=== PATIENT | female | born 1965 | race Caucasian/White ===

== ENCOUNTER 2023-04-11 10:59 | Inpatient (IN) ==
[2023-04-11] MEDS ORDERED: PROPOFOL IV EMULSION 10 MG/ML 20 ML VIAL IV ONE ×3 (11:07→15:54)
[2023-04-11] MEDS ORDERED: KETAMINE HCL INJ 50 MG/ML 10 ML VIAL IV STA (11:14)
[2023-04-11] MEDS ORDERED: fentaNYL citrate PF 100 MCG/2 ML VIAL IV STA (11:14)
[2023-04-11] MEDS ORDERED: ONDANSETRON INJ 2 MG/ML 2 ML VIAL IV STA (11:14)
[2023-04-11] MEDS ORDERED: KETAMINE HCL INJ 50 MG/ML 10 ML VIAL ONE (11:18)
--- NOTE | 2023-04-11 11:35 | Pre Anesthesia Assessment ---
Date of Service April 11, 2023 Pre Sedation Assessment Vital Signs Temp Pulse Pulse Resp BP BP Pulse Ox 04/11/23 11:30 63 10 L 124/76 98 04/11/23 11:28 69 24 152/79 H 99 04/11/23 11:16 75 16 143/83 H 95 04/11/23 11:18 36.7 C 75 18 143/83 H 95 O2 Del Method 04/11/23 11:30 04/11/23 11:28 04/11/23 11:16 Room Air 04/11/23 11:18 Room Air Cardiovascular RRR, no murmur, no edema Respiratory normal respiratory effort, lungs clear to auscultation Pre-Sedation Airway Assessment Smoking Status: Unknown if ever smoked Short, Thick Neck: No Thyromental Distance: > or= 3.5 Finger Breadths Oral Cavity: + WNL Mallampati Class: I I ASA: ASA1 I NPO Status Date of Last Intake of Fluids: 04/10/23 Date of Last Intake of Solid Food: 04/10/23 Notes The planned sedation has been discussed with the patient. Informed Consent was obtained. I have identified the patient, determined the appropriateness of sedation and have assessed the patient immediately prior to the procedure. All medicine(s) and interventions are by my order. [facility] [place] Procedure Codes (Charges) Indication for Procedure Indication for procedure: Ankle fracture reduction
--- NOTE | 2023-04-11 11:36 | Emergency Department Note ---
ED Visit Note SEDATION NOTE: Last PO Intake per patient: 04/10/2023 at 1900 Consent was obtained and both verbal and written forms from the patient or guardian. Patient was placed on monitoring analyst with end-tidal capnography and continuous pulse ox. -Indication for sedation: Right ankle fracture reduction -Timeout was performed at: 1126 -Medications administered: Propofol 40 mg, ketamine 40 mg -Sedation start time: 1127 -Sedation end time: 1141 -Complications encountered: None On reexamination following and sedation time, patient is alert, following commands, airway is intact and patient is saturating well on room air. .
--- NOTE | 2023-04-11 12:08 | Post Anesthesia Assessment ---
Date of Service April 11, 2023 Post Sedation Assessment Vital Signs Temp Pulse Pulse Resp BP BP Pulse Ox 04/11/23 12:00 61 13 129/79 97 04/11/23 11:58 63 12 131/84 98 04/11/23 11:55 62 12 99 04/11/23 11:52 65 18 131/80 98 04/11/23 11:51 65 13 137/63 99 04/11/23 11:50 66 12 98 04/11/23 11:45 65 17 130/100 99 04/11/23 11:41 66 13 147/88 H 99 04/11/23 11:40 66 18 99 04/11/23 11:36 73 12 132/86 99 04/11/23 11:30 63 10 L 124/76 98 04/11/23 11:28 69 24 152/79 H 99 04/11/23 11:16 75 16 143/83 H 95 04/11/23 11:18 36.7 C 75 18 143/83 H 95 O2 Del Method O2 Flow Rate 04/11/23 12:00 Room Air 04/11/23 11:58 Room Air 04/11/23 11:55 Room Air 04/11/23 11:52 Room Air 04/11/23 11:51 Room Air 04/11/23 11:50 Room Air 04/11/23 11:45 Room Air 04/11/23 11:41 Room Air 04/11/23 11:40 Nasal Cannula 2 04/11/23 11:36 Nasal Cannula 2 04/11/23 11:30 04/11/23 11:28 04/11/23 11:16 Room Air 04/11/23 11:18 Room Air Recovery Score Activity: Moves 4 extremities Respiration: Deep Breath/Cough Consciousness: Fully Awake Oxygen Saturation: > 92% On Room Air Discharge Sedation Level of Care: Phase I Post Sedation Plan On clinical assessment, the patient appears to have tolerated the sedation without complications. Patient is recovering as anticipated. Patient will continue to be monitored by nursing and may be discharged when sedation discharge criteria are met per below protocol. Upon Completions of procedure up to 15 minutes continue every 5 minute vital signs and the P.A.R. score; then discharge to a Phase I or Fast Track to Phase II per the following guidelines: * Discharge Patient to appropriate Phase II area if PAR is 8 or greater or return to pre- procedure baseline. The post - procedure orders will be as directed. * If PAR score is less than 8 or not return to pre-procedure baseline then patient will follow Phase I monitoring till PAR is reached for Phase II. The Phase I may be done in procedure room or may call to secure a Phase I area. * If naloxone or flumazenil are used for reversal, hold in Phase I for continued monitoring from when last reversal dose was given for a minimum of 60 minutes or longer pending the nurse and/or physician discretion of patient condition before discharge to Phase II. Please call the Sedation Physician to re-evaluate and complete post-note for discharge to Phase II area. Do NOT discharge from procedure sedation or Phase 1 until post- sedation evaluation note is complete by procedure /sedation MD Sedation Discharge Instructions to be given to the patient at discharge to home. [facility] Procedure Codes (Charges) Indication for Procedure Indication for procedure: Right ankle fracture dislocation/reduction, patient tolerated sedation without issue.
--- NOTE | 2023-04-11 12:08 | XRay Report ---
RIGHT ANKLE 3 VIEWS CLINICAL HISTORY: Postreduction examination. FINDINGS: 3 views of the right ankle are compared to study performed earlier the same day 04/11/2023. The examination is performed through a splint, obscuring fine bony detail. The skeletal structures a re well-mineralized. Again seen is a displaced an angulated spiral fracture of the distal fibula and a mildly displaced avulsion fracture through the base of the medial malleolus. The medial malleolar f ragment is displaced inferiorly by at least 5 mm. Alignment of the ankle mortise is significantly imp roved. There is persistent widening of the medial joint space which measures approximately 7 mm, with lateral displacement of the talus. AP alignment of the tibiotalar joint is near-anatomic. There is a ssociated joint effusion and significant soft tissue edema around the knee. There is a small plantar heel spur. IMPRESSION: 1. Improved alignment of bimalleolar fractures as compared to previous as detailed above. 2. There is persistent widening of the medial joint space with mild lateral subluxation of the talus. Electronically signed by: Jayce Galvan M.D. 04/11/2023 12:06 PM
[2023-04-11] MEDS ORDERED: MoRPHine SULFATE 4 MG/ML 1 ML CARP\\VIAL IV PRN ×2 (12:33→20:19)
--- NOTE | 2023-04-11 13:33 | XRay Report ---
XR ankle RT 2V CLINICAL HISTORY: Right ankle pain. Fracture. COMPARISON STUDY: None. FINDINGS: There is a displaced oblique fracture within the distal fibula. This demonstrates up to 2.1 cm of posterior displacement. There is also displaced fracture at the medial malleolus. There is pos terior dislocation of the talus in relation to the distal tibia. There is diffuse soft tissue swellin g. IMPRESSION: Bimalleolar right ankle fracture/dislocation as described above. ACT 112: Negative or not required by law. Electronically signed by: Oleg Jose M.D. 04/11/2023 1:32 PM
--- NOTE | 2023-04-11 14:16 | History & Physical Report ---
Date of Service April 11, 2023 Assessment & Plan (1) Bimalleolar ankle fracture: Plan: Admit to [facility] Patient presenting from home after a mechanical fall down the stairs. In the ED, found to have right bimalleolar fracture. S/p reduction in the ED, will need OR. Ortho consulted Preop CBC and BMP unremarkable CXR without acute cardiopulmonary disease, EKG without acute ST changes. Patient denies cardiopulmonary complaints. Patient considered acceptable risk to proceed with surgery. Pain control with bowel regimen DVT prophylaxis per Ortho (2) Anxiety: (3) Depression: Plan: Chronic, stable Continue home meds DVT PROPHYLAXIS SCDs for now due to potential procedure Patient seen in collaboration with Dr. Jordan. I spent a total of 60 minutes coordinating, documenting, and providing care for this patient excluding time spent in the performance of separately billed services. This included personally reviewing all current laboratories and imaging studies, medication reconciliation, outpatient chart review, and discussion with specialists. History of Present Illness Chief Complaint: Fall, right ankle pain Primary Care Provider: ETHAN JONNYGeoff 57-year-old female with PMH anxiety, depression, and other problems listed below who presents to the ED for evaluation after a fall and subsequent right ankle pain. History obtained from the patient. Patient reports she was walking down steps in her socks when she slipped and fell down about 8 steps. Her right ankle was significantly swollen and deformed. Patient denies striking her head or loss of consciousness. No associated lightheadedness, dizziness, chest pain, shortness of breath. Patient reports she otherwise has been feeling well recently. No other recent illnesses, fevers, chills. She denies abdominal p ain, nausea, vomiting, diarrhea. No urinary symptoms. In the ED, patient is found to have a right bimalleolar fracture with dislocation. She underwent reduction in the ED. Allergies Allergy/AdvReac Type Severity Reaction Status Date / Time No Known Allergies Allergy Unverified 04/11/23 12:44 Home Medications Medication Instructions Recorded Confirmed Type estradiol 2 mg (7.5 mcg/24 hour) 1 vag ring vaginal MONTHLY 04/11/23 04/11/23 History vaginal ring (Estring) fluoxetine 10 mg capsule See Rx Instructions .Route .COMPLEX 04/11/23 04/11/23 History fluoxetine 40 mg capsule See Rx Instructions .Route .COMPLEX 04/11/23 04/11/23 History lamotrigine 200 mg tablet See Rx Instructions .Route .COMPLEX 04/11/23 04/11/23 History lamotrigine 25 mg tablet See Rx Instructions .Route .COMPLEX 04/11/23 04/11/23 History mirabegron 50 mg tablet,extended 50 mg PO QAM 04/11/23 04/11/23 History release 24 hr (Myrbetriq) multivitamin-ferrous 1 tab PO QAM 04/11/23 04/11/23 History fumarate-folic acid 18 mg-400 mcg tablet (Centrum Women) propranolol 20 mg tablet 20 mg PO QAM 04/11/23 04/11/23 History trazodone 50 mg tablet 50 mg PO HS 04/11/23 04/11/23 History Past Med/Surg History Medical History Anxiety Depression Surgical History History of appendectomy History of bilateral oophorectomy Family History Mother Esophageal cancer Father COPD (chronic obstructive pulmonary disease) Social History Smoking Status: Unknown if ever smoked Hx Substance Use: No Preferred Language: [place] Feels Safe at Home: Yes Physical Exam Constitutional: WD/WN, vitals as above no acute distress Eyes: PERRL, conjunctivae normal, anicteric sclerae ENMT: external ear and nose normal, oropharynx normal Respiratory: normal respiratory effort, lungs clear to auscultation Cardiovascular: Rate/Rhythm: regular rate and regular rhythm Vessels: normal peripheral pulses Extremities: no edema Gastrointestinal (Abdomen): normal bowel sounds, soft, nontender, no hepatosplenomegaly Musculoskeletal: RLE splinted, CSM checks intact Skin: no rashes, warm and dry Neurologic: PERRL, EOMI, accommodation nl, no face palsy, no dysarthria Psychiatric: A+Ox3, euthymic affect Results & Data Results & Data Vital Signs (Past 12 Hours) Vital Signs Temp Pulse Pulse Resp BP BP Pulse Ox 04/11/23 12:34 100 04/11/23 13:16 67 18 101/61 96 04/11/23 12:16 67 04/11/23 12:00 61 13 129/79 97 04/11/23 11:58 63 12 131/84 98 04/11/23 11:55 62 12 99 04/11/23 11:52 65 18 131/80 98 04/11/23 11:51 65 13 137/63 99 04/11/23 11:50 66 12 98 04/11/23 11:45 65 17 130/100 99 04/11/23 11:41 66 13 147/88 H 99 04/11/23 11:40 66 18 99 04/11/23 11:36 73 12 132/86 99 04/11/23 11:30 63 10 L 124/76 98 04/11/23 11:28 69 24 152/79 H 99 04/11/23 11:16 75 16 143/83 H 95 04/11/23 11:18 36.7 C 75 18 143/83 H 95 O2 Del Method O2 Flow Rate 04/11/23 12:34 Room Air 04/11/23 13:16 Room Air 04/11/23 12:16 04/11/23 12:00 Room Air 04/11/23 11:58 Room Air 04/11/23 11:55 Room Air 04/11/23 11:52 Room Air 04/11/23 11:51 Room Air 04/11/23 11:50 Room Air 04/11/23 11:45 Room Air 04/11/23 11:41 Room Air 04/11/23 11:40 Nasal Cannula 2 04/11/23 11:36 Nasal Cannula 2 04/11/23 11:30 04/11/23 11:28 04/11/23 11:16 Room Air 04/11/23 11:18 Room Air Code Status & VTE Plan VTE Prophylaxis Plan VTE Prophylaxis will be ordered: Yes Supervising Physician Co-Signing Physician Notes I have seen and discussed the case with the collaborating FLAT CUTTER. I agree with the above H&P. I have reviewed and confirmed the patients medical history, the findings on physical examination, and the patients diagnosis and treatment plan with Love FLAT CUTTER and agree with the information documented. In short, Ms. Buck is a 57 year old woman who presents after a sustaining a fall down 8 stairs with subsequent bimalleloar fracture of right ankle. Pending procedure with Ortho. Currently NPO. Post-operative pain management. Rest of plan as above
[2023-04-11 14:29] LABS: Basophils % (auto) 1.3 %; Eosinophils # (auto) 0.52 K/uL (0.00-0.50); Eosinophils % (auto) 6.6 %; Hemoglobin 11.6 g/dl (12.0-16.0); Immature Granulocytes # (auto) 0.02 K/uL (0.01-0.20); Immature Granulocytes % (auto) 0.3 %; Lymphocytes # (auto) 1.13 K/uL (1.20-3.40); Lymphocytes % (auto) 14.3 %; Mean Corpuscular Hemoglobin 30.3 pg (25.0-34.0); Mean Corpuscular Hgb Conc 32.2 g/dL (32.0-36.0); Mean Platelet Volume 11.8 fL (9.4-12.4); Monocytes # (auto) 0.45 K/uL (0.11-0.59); Monocytes % (auto) 5.7 %; Neutrophils % (auto) 71.8 %; Platelet Count 163 K/uL (130-400); RDW Coefficient of Variation 12.6 % (11.5-14.5); RDW Standard Deviation 43.7 fL (36.4-46.3); Red Blood Count 3.83 M/uL (4.20-5.40); White Blood Count 7.92 K/ul (4.8-10.8)
--- NOTE | 2023-04-11 14:37 | XRay Report ---
XR chest 1V portable HISTORY: 57 years-old Female pre op preoperative exam. No acute chest complaints COMPARISON: None TECHNIQUE: AP view of the chest FINDINGS: Cardiomediastinal and hilar silhouettes are within normal limits. No pneumothorax, pleural effusion o r airspace consolidation. Bones appear grossly intact. IMPRESSION: No acute process. ACT 112: Negative or not required by law. The above report was generated using voice recognition software. It may contain grammatical, syntax o r spelling errors. Electronically signed by: Sincere العراقي M.D. 04/11/2023 2:36 PM
[2023-04-11 14:44] LABS: Anion Gap 6 (3-11); BUN Creatinine Ratio 11.8 (10-20); Blood Urea Nitrogen 11 mg/dl (6-23); Calcium 8.5 mg/dl (8.6-10.3); Carbon Dioxide 28 mmol/L (21-32); Chloride 106 mmol/L (98-107); Est GFR (African American) 80.2 ml/min; Est GFR (Non-African American) 69.2 ml/min; Glucose 100 mg/dl (70-99(Fasting)); Potassium 3.7 mmol/L (3.5-5.1); Sodium 140 mmol/L (136-145)
[2023-04-11 15:01] LABS: Partial Thromboplastin Ratio 0.9; Partial Thromboplastin Time 26.2 Seconds (21.0-31.0)
[2023-04-11] MEDS ORDERED: ROCURONIUM BROMIDE 10 MG/ML 5 ML VIAL IV ONE (15:54)
[2023-04-11] MEDS ORDERED: ONDANSETRON INJ 2 MG/ML 2 ML VIAL ONE (15:54)
[2023-04-11] MEDS ORDERED: SUCCINYLCHOLINE CHLORIDE 20 MG/ML 10 ML VIAL IV ONE (15:54)
[2023-04-11] MEDS ORDERED: LIDOCAINE 2% 2 ML VIAL/AMP(20MG/ML) INFIL ONE (15:54)
[2023-04-11] MEDS ORDERED: DEXAMETHASONE SOD INJ 4 MG/ML VIAL ONE ×2 (15:54→17:29)
--- NOTE | 2023-04-11 16:02 | Emergency Department Note ---
History of Present Illness General Chief complaint: Ankle Pain Stated complaint: FALL, ANKLE PAIN Time Seen by Provider: 04/11/23 11:00 History of Present Illness Provider complaint: Right ankle pain Onset (ago): hour(s) 1 Location: lower extremity and right Radiation: non-radiation Severity: moderate Pain Consistency: + constant Maximum Pain Intensity: 7 Current Pain Intensity: 7 Quality: + aching and + dull Relieved By: + immobilization Exacerbated By: + movement Associated symptoms: no chest pain, no cough, no headaches, no nausea/vomiting or no shortness of breath 57-year-old female presents emergency department for right ankle pain. Patient states she was wearing her socks and fell down the stairs. She is not on any blood thinners. Patient denies any headache chest pain neck pain or difficulty breathing. No abdominal pain. Home Medications Medication Instructions Recorded Confirmed Type estradiol 2 mg (7.5 mcg/24 hour) 1 vag ring vaginal MONTHLY 04/11/23 04/11/23 History vaginal ring (Estring) fluoxetine 10 mg capsule See Rx Instructions .Route .COMPLEX 04/11/23 04/11/23 History fluoxetine 40 mg capsule See Rx Instructions .Route .COMPLEX 04/11/23 04/11/23 History lamotrigine 200 mg tablet See Rx Instructions .Route .COMPLEX 04/11/23 04/11/23 History lamotrigine 25 mg tablet See Rx Instructions .Route .COMPLEX 04/11/23 04/11/23 History mirabegron 50 mg tablet,extended 50 mg PO QAM 04/11/23 04/11/23 History release 24 hr (Myrbetriq) multivitamin-ferrous 1 tab PO QAM 04/11/23 04/11/23 History fumarate-folic acid 18 mg-400 mcg tablet (Centrum Women) propranolol 20 mg tablet 20 mg PO QAM 04/11/23 04/11/23 History trazodone 50 mg tablet 50 mg PO HS 04/11/23 04/11/23 History Allergies Allergy/AdvReac Type Severity Reaction Status Date / Time No Known Allergies Allergy Unverified 04/11/23 12:44 Past Med/Surg History Medical History Anxiety Depression Surgical History History of appendectomy History of bilateral oophorectomy Family History Mother Esophageal cancer Father COPD (chronic obstructive pulmonary disease) Social History Smoking Status: Unknown if ever smoked Hx Substance Use: No Preferred Language: Guyanese Feels Safe at Home: Yes Physical Exam Vital Signs Vital Signs - 24 hr 04/11/23 11:18 04/11/23 11:16 04/11/23 11:28 Temperature 36.7 C Temperature Source Oral Pulse Rate 75 69 Pulse Rate [Bilateral] 75 Pulse Rate from SpO2 Sensor 68 Pulse Rhythm [Bilateral] Pulse Strength [Bilateral] Respiratory Rate 18 16 24 Respiratory Effort / Characteristics Respiratory Depth Respiratory Pattern Blood Pressure 143/83 H 152/79 H Blood Pressure [Right Arm] 143/83 H Blood Pressure Mean 103 103 Blood Pressure Mean [Right Arm] 103 Blood Pressure Position [Right Arm] Pulse Oximetry 95 95 99 Oxygen Delivery Method Room Air Room Air Oxygen Flow Rate Sepsis Recent Fever Within 48 Hours No Sepsis New/Unexplained Change in Mental Status N/A Sepsis Action Taken by Nursing No Action Required End-Tidal CO2 17 04/11/23 11:30 04/11/23 11:36 04/11/23 11:40 Temperature Temperature Source Pulse Rate 63 73 66 Pulse Rate [Bilateral] Pulse Rate from SpO2 Sensor 63 72 65 Pulse Rhythm [Bilateral] Pulse Strength [Bilateral] Respiratory Rate 10 L 12 18 Respiratory Effort / Characteristics Respiratory Depth Respiratory Pattern Blood Pressure 124/76 132/86 Blood Pressure [Right Arm] Blood Pressure Mean 92 101 Blood Pressure Mean [Right Arm] Blood Pressure Position [Right Arm] Pulse Oximetry 98 99 99 Oxygen Delivery Method Nasal Cannula Nasal Cannula Oxygen Flow Rate 2 2 Sepsis Recent Fever Within 48 Hours Sepsis New/Unexplained Change in Mental Status Sepsis Action Taken by Nursing End-Tidal CO2 15 15 21 04/11/23 11:41 04/11/23 11:45 04/11/23 11:50 Temperature Temperature Source Pulse Rate 66 65 66 Pulse Rate [Bilateral] Pulse Rate from SpO2 Sensor 66 65 66 Pulse Rhythm [Bilateral] Pulse Strength [Bilateral] Respiratory Rate 13 17 12 Respiratory Effort / Characteristics Respiratory Depth Respiratory Pattern Blood Pressure 147/88 H 130/100 Blood Pressure [Right Arm] Blood Pressure Mean 107 110 Blood Pressure Mean [Right Arm] Blood Pressure Position [Right Arm] Pulse Oximetry 99 99 98 Oxygen Delivery Method Room Air Room Air Room Air Oxygen Flow Rate Sepsis Recent Fever Within 48 Hours Sepsis New/Unexplained Change in Mental Status Sepsis Action Taken by Nursing End-Tidal CO2 18 20 21 04/11/23 11:51 04/11/23 11:52 04/11/23 11:55 Temperature Temperature Source Pulse Rate 65 65 62 Pulse Rate [Bilateral] Pulse Rate from SpO2 Sensor 65 65 62 Pulse Rhythm [Bilateral] Pulse Strength [Bilateral] Respiratory Rate 13 18 12 Respiratory Effort / Characteristics Respiratory Depth Respiratory Pattern Blood Pressure 137/63 131/80 Blood Pressure [Right Arm] Blood Pressure Mean 87 97 Blood Pressure Mean [Right Arm] Blood Pressure Position [Right Arm] Pulse Oximetry 99 98 99 Oxygen Delivery Method Room Air Room Air Room Air Oxygen Flow Rate Sepsis Recent Fever Within 48 Hours Sepsis New/Unexplained Change in Mental Status Sepsis Action Taken by Nursing End-Tidal CO2 22 20 04/11/23 11:58 04/11/23 12:00 04/11/23 12:16 Temperature Temperature Source Pulse Rate 63 61 67 Pulse Rate [Bilateral] Pulse Rate from SpO2 Sensor 62 62 Pulse Rhythm [Bilateral] Pulse Strength [Bilateral] Respiratory Rate 12 13 Respiratory Effort / Characteristics Respiratory Depth Respiratory Pattern Blood Pressure 131/84 129/79 Blood Pressure [Right Arm] Blood Pressure Mean 99 95 Blood Pressure Mean [Right Arm] Blood Pressure Position [Right Arm] Pulse Oximetry 98 97 Oxygen Delivery Method Room Air Room Air Oxygen Flow Rate Sepsis Recent Fever Within 48 Hours Sepsis New/Unexplained Change in Mental Status Sepsis Action Taken by Nursing End-Tidal CO2 23 25 04/11/23 13:16 04/11/23 12:34 04/11/23 14:00 Temperature Temperature Source Pulse Rate Pulse Rate [Bilateral] 67 63 Pulse Rate from SpO2 Sensor Pulse Rhythm [Bilateral] Pulse Strength [Bilateral] Respiratory Rate 18 18 Respiratory Effort / Characteristics Respiratory Depth Respiratory Pattern Blood Pressure Blood Pressure [Right Arm] 101/61 91/56 L Blood Pressure Mean Blood Pressure Mean [Right Arm] 74 67 Blood Pressure Position [Right Arm] Pulse Oximetry 96 100 95 Oxygen Delivery Method Room Air Room Air Room Air Oxygen Flow Rate Sepsis Recent Fever Within 48 Hours Sepsis New/Unexplained Change in Mental Status Sepsis Action Taken by Nursing End-Tidal CO2 04/11/23 16:12 04/11/23 15:50 04/11/23 16:09 Temperature 36.6 C Temperature Source Oral Pulse Rate Pulse Rate [Bilateral] 58 L 68 Pulse Rate from SpO2 Sensor Pulse Rhythm [Bilateral] Regular Pulse Strength [Bilateral] Normal Respiratory Rate 20 18 Respiratory Effort / Characteristics Non-Labored Spontaneous Respiratory Depth Normal Respiratory Pattern Regular Blood Pressure Blood Pressure [Right Arm] 115/64 102/61 Blood Pressure Mean Blood Pressure Mean [Right Arm] 81 74 Blood Pressure Position [Right Arm] Semi-fowlers Pulse Oximetry 100 98 Oxygen Delivery Method Room Air Room Air Room Air Oxygen Flow Rate Sepsis Recent Fever Within 48 Hours Sepsis New/Unexplained Change in Mental Status Sepsis Action Taken by Nursing End-Tidal CO2 Physical Exam HENT: Exam performed. -Head: Normocephalic and atraumatic. -Right Ear: External ear normal. No mastoid erythema -Left Ear: External ear normal. No mastoid erythema -Mouth/Throat: The oropharynx is clear and moist. No trismus in the jaw. No dental abscesses or uvula swelling. No oropharyngeal exudate or tonsillar abscesses. EYES: Conjunctivae and EOM are normal. Pupils are equal, round, and reactive to light. Right eye exhibits no discharge. Left eye exhibits no discharge. No scleral icterus. NECK: Normal range of motion. Neck supple. No JVD present. No spinous process tenderness present. CV: Normal rate, regular rhythm, normal heart sounds and intact distal pulses. There is no peripheral edema. Palpable radial pulses bue. PULM/CHEST: Effort normal and breath sounds normal. No respiratory distress. No stridor. She has no wheezes. She has no rales. -Chest Wall: She exhibits no tenderness. No crepitus bilaterally ABD: The abdomen is soft. There is no tenderness. There is no rebound, no guarding MUSC/SKEL: Pelvis stable. Right lower extremity: Obvious deformity with skin tenting of the right ankle. Palpable DP pulse. Left lower extremity: Within normal limits. NEURO: Motor and sensation grossly intact. Procedures Orthopedic Joint Reduction Right ankle: Time Out Performed: Yes Side: right Joint Reduction Location: ankle Analgesia: procedural sedation Technique used: traction/counter-traction Post-reduction neuro exam: intact Post-reduction vascular: intact Post Reduction X-Ray Obtained: Yes Post Reduction X-Ray Results: reduced Splint Applied: Yes Patient Tolerated Procedure: well Additional Comments: Splint was checked after was applied by the splinting tech and the patient had good capillary refill less than 2 seconds and sensation was intact. Course Course 1100: The patient was evaluated in room B10. A complete history and physical exam was performed Cardiac monitoring: An order was placed for continuous cardiac monitoring. The monitor shows a rate of 60 with sinus rhythm interpreted by tx 1235: Vital signs stable. Joint was reduced while under sedation performed by Dr. Powers. See procedure notes. After discussion with the family and they are physician friend in the area locally Dr. Anne decision was made that the patient would be admitted here for orthopedic surgery to have the fractures fixed as they thought it would be very difficult to travel back to [place] with the patient in as much pain as she is in. We will contact Dr. Mina on-call orthopedics. 1250: Spoke with Dr. Mina who asked that the patient be admitted to the medicine team. Administered Medications Morphine Sulfate (Morphine Sulfate 4 Mg/Ml 1 Ml Carp\Vial) 4 mg IV Q2H PRN PRN Reason: Pain Stop: 04/25/23 12:44 Last Admin: 04/11/23 14:01 Dose: 4 mg Documented By: TBS Discontinued Medications Fentanyl Citrate (Fentanyl Citrate Pf 100 Mcg/2 Ml Vial) 100 mcg IV NOW STA Stop: 04/11/23 11:15 Last Admin: 04/11/23 11:24 Dose: 100 mcg Documented By: ANA LUISA Cefazolin Sodium (Ancef 2000mg) 2,000 mg in 15 mls @ 3.75 mls/min IV PREOP ONE; Protocol Stop: 04/11/23 16:17 Last Admin: 04/11/23 16:48 Dose: 3.75 mls/min Documented By: LORNA Ketamine HCl (Ketamine Hcl Inj 50 Mg/Ml 10 Ml Vial) Confirm Administered Dose 500 mg .ROUTE .STK-MED ONE Stop: 04/11/23 11:19 Last Admin: 04/11/23 11:45 Dose: Not Given Documented By: ANA LUISA Ketamine HCl (Ketamine Hcl Inj 50 Mg/Ml 10 Ml Vial) 40 mg IV NOW STA Stop: 04/11/23 11:15 Last Admin: 04/11/23 11:27 Dose: 40 mg Documented By: [id number] Ondansetron HCl (Ondansetron Inj 2 Mg/Ml 2 Ml Vial) 4 mg IV NOW STA Stop: 04/11/23 11:15 Last Admin: 04/11/23 11:24 Dose: 4 mg Documented By: ANA LUISA Propofol (Propofol Iv Emulsion 10 Mg/Ml 20 Ml Vial) Confirm Administered Dose 200 mg IV .STK-MED ONE Stop: 04/11/23 11:08 Last Admin: 04/11/23 11:45 Dose: Not Given Documented By: ANA LUISA Propofol (Propofol Iv Emulsion 10 Mg/Ml 20 Ml Vial) Confirm Administered Dose 200 mg IV .STK-MED ONE Stop: 04/11/23 11:08 Last Admin: 04/11/23 11:28 Dose: 40 mg Documented By: [id number] Co-signed By: UBALDO Medical Decision Making Laboratory Data Attestation: I reviewed the patient's lab results. 04/11/23 14:00 04/11/23 14:00 Lab Results 04/11/23 04/11/23 04/11/23 Range/Units 14:00 14:00 14:00 WBC 7.92 (4.8-10.8) K/ul RBC 3.83 L (4.20-5.40) M/uL Hgb 11.6 L (12.0-16.0) g/dl Hct 36.0 L (37.0-47.0) % MCV 94.0 (80.0-100.0) fL MCH 30.3 (25.0-34.0) pg MCHC 32.2 (32.0-36.0) g/dL RDW Std Deviation 43.7 (36.4-46.3) fL RDW Coeff of Tolu 12.6 (11.5-14.5) % Plt Count 163 (130-400) K/uL MPV 11.8 (9.4-12.4) fL Immature Gran % (Auto) 0.3 % Neut % (Auto) 71.8 % Lymph % (Auto) 14.3 % [place] % (Auto) 5.7 % Eos % (Auto) 6.6 % Baso % (Auto) 1.3 % Neut # (Auto) 5.70 (1.40-6.50) K/uL Lymph # (Auto) 1.13 L (1.20-3.40) K/uL [place] # (Auto) 0.45 (0.11-0.59) K/uL Eos # (Auto) 0.52 H (0.00-0.50) K/uL Baso # (Auto) 0.10 (0.00-0.20) K/uL Immature Gran # (Auto) 0.02 (0.01-0.20) K/uL PT 11.0 (9.0-12.0) Seconds INR 1.0 (0.9-1.1) APTT 26.2 (21.0-31.0) Seconds PTT Ratio 0.9 Sodium 140 (136-145) mmol/L Potassium 3.7 (3.5-5.1) mmol/L Chloride 106 (98-107) mmol/L Carbon Dioxide 28 (21-32) mmol/L Anion Gap 6 (3-11) BUN 11 (6-23) mg/dl Creatinine 0.93 (0.6-1.2) mg/dl Est Cr Clr Drug Dosing Not Reportable Est GFR ( Amer) 80.2 ml/min Est GFR (Non-Af Amer) 69.2 ml/min BUN/Creatinine Ratio 11.8 (10-20) Glucose 100 H (70-99(Fasting)) mg/dl Calcium 8.5 L (8.6-10.3) mg/dl Imaging Data Attestation: I personally reviewed and interpreted this imaging study as follows: My Impression: Right ankle x-ray #1: Fracture dislocation of the right ankle Right ankle x-ray #2: Successful closed reduction of the right ankle Radiologist's Impression: Ankle X-Ray 04/11/23 11:13 XR ankle RT 2V CLINICAL HISTORY: Right ankle pain. Fracture. COMPARISON STUDY: None. FINDINGS: There is a displaced oblique fracture within the distal fibula. This demonstrates up to 2.1 cm of posterior displacement. There is also displaced fracture at the medial malleolus. There is posterior dislocation of the talus in relation to the distal tibia. There is diffuse soft tissue swelling. IMPRESSION: Bimalleolar right ankle fracture/dislocation as described above. ACT 112: Negative or not required by law. Electronically signed by: Oleg Jose M.D. 04/11/2023 1:32 PM Ankle X-Ray 04/11/23 11:34 RIGHT ANKLE 3 VIEWS CLINICAL HISTORY: Postreduction examination. FINDINGS: 3 views of the right ankle are compared to study performed earlier the same day 04/11/2023. The examination is performed through a splint, obscuring fine bony detail. The skeletal structures are well-mineralized. Again seen is a displaced an angulated spiral fracture of the distal fibula and a mildly displaced avulsion fracture through the base of the medial malleolus. The medial malleolar fragment is displaced inferiorly by at least 5 mm. Alignment of the ankle mortise is significantly improved. There is persistent widening of the medial joint space which measures approximately 7 mm, with lateral displacement of the talus. AP alignment of the tibiotalar joint is near-anatomic. There is associated joint effusion and significant soft tissue edema around the knee. There is a small plantar heel spur. IMPRESSION: 1. Improved alignment of bimalleolar fractures as compared to previous as detailed above. 2. There is persistent widening of the medial joint space with mild lateral subluxation of the talus. Electronically signed by: Jayce Galvan M.D. 04/11/2023 12:06 PM Chest X-Ray 04/11/23 13:46 XR chest 1V portable HISTORY: 57 years-old Female pre op preoperative exam. No acute chest complaints COMPARISON: None TECHNIQUE: AP view of the chest FINDINGS: Cardiomediastinal and hilar silhouettes are within normal limits. No pneumothorax, pleural effusion or airspace consolidation. Bones appear grossly intact. IMPRESSION: No acute process. ACT 112: Negative or not required by law. The above report was generated using voice recognition software. It may contain grammatical, syntax or spelling errors. Electronically signed by: Sincere العراقي M.D. 04/11/2023 2:36 PM ECG Data Attestation: I personally reviewed and interpreted this ECG as follows: Rate (beats per minute): 60 Rhythm: + normal sinus ECG Intervals/blocks: + Normal MT and + Normal QT-c ECG ST segments: + Normal ST segments Additional Comments: QRS 76 MDM Narrative 1100: The patient was evaluated in room B10. A complete history and physical exam was performed Cardiac monitoring: An order was placed for continuous cardiac monitoring. The monitor shows a rate of 60 with sinus rhythm interpreted by me 1235: Vital signs stable. Joint was reduced while under sedation performed by Dr. Powers. See procedure notes. After discussion with the family and they are physician friend in the area locally Dr. Anne decision was made that the patient would be admitted here for orthopedic surgery to have the fractures fixed as they thought it would be very difficult to travel back to [place] with the patient in as much pain as she is in. We will contact Dr. Mina on-call orthopedics. 1250: Spoke with Dr. Mina who asked that the patient be admitted to the medicine team. Impression & Plan Fracture of ankle, trimalleolar, right, closed Discharge Plan Visit Data Chief Complaint: Ankle Pain Stated Complaint: FALL, ANKLE PAIN ED Provider: Steven Núñez Discharge Problem: Fracture of ankle, trimalleolar, right, closed Patient Disposition: Admitted As Inpatient Discharge Instructions Interventions: ED Discharge Assessment Last Done: 04/11/23 16:09 Forms Stand Alone Forms: [facility] [place] Prescriptions Prescriptions: No Action fluoxetine 40 mg capsule See Rx Instructions .ROUTE .COMPLEX Rx Instructions: Take 2 of the 40mg capsules w/ one of the 10mg capsules to equal 90mg by mouth every morning. trazodone 50 mg tablet 50 mg PO HS fluoxetine 10 mg capsule See Rx Instructions .ROUTE .COMPLEX Rx Instructions: Take 10mg capsule w/ 2 of the 40mg capsules to equal 90mg by mouth every morning. Estring 2 mg (7.5 mcg /24 hour) ring 1 vag ring VAGINAL MONTHLY propranolol 20 mg tablet 20 mg PO QAM Centrum Women 18-400 mg-mcg Tablet 1 tab PO QAM Myrbetriq 50 mg tablet extended release 24 hr 50 mg PO QAM lamotrigine 200 mg tablet See Rx Instructions .ROUTE .COMPLEX Rx Instructions: Take 200mg tablet w/ 25mg tablet by mouth to equal 225mg twice daily lamotrigine 25 mg tablet See Rx Instructions .ROUTE .COMPLEX Rx Instructions: Take 25mg tablet w/ 200mg tablet by mouth to equal 225mg twice daily Referrals Referrals: Shelia Singh MD [Primary Care Provider] -
[2023-04-11] MEDS ORDERED: BUPIVACAINE/EPINEPHRINE 0.5% MPF 1:200,000 30 ML VIAL ONE (16:03)
[2023-04-11] MEDS ORDERED: ePHEDrine sulfate 50 MG/ML AMP IV PRN (16:12)
[2023-04-11] MEDS ORDERED: ATROPINE SULFATE 0.1 MG/ML 10ML SYR IV PRN (16:12)
[2023-04-11] MEDS ORDERED: ONDANSETRON INJ 2 MG/ML 2 ML VIAL IV PRN ×2 (16:12→20:19)
[2023-04-11] MEDS ORDERED: fentaNYL citrate PF 100 MCG/2 ML VIAL IV PRN (16:12)
[2023-04-11] MEDS ORDERED: ceFAZolin 2000MG 2,000 MG/15 ML SYR IV ONE (16:14)
[2023-04-11] MEDS ORDERED: ceFAZolin 2,000 MG/15 ML IV PUSH IV ONE (16:16)
--- NOTE | 2023-04-11 16:21 | History & Physical Bridge Note ---
Date of Service April 11, 2023 History & Physical Bridge Note I have examined the patient, reviewed the History & Physical and in the interval since the performance of the History & Physical I have noted the following changes of clinical significance: no changes noted
[2023-04-11] MEDS ORDERED: fentaNYL citrate PF 100 MCG/2 ML VIAL ONE (16:22)
[2023-04-11] MEDS ORDERED: MIDAZOLAM HCL 1 MG/ML 2ML VIAL ONE (16:22)
--- NOTE | 2023-04-11 16:28 | Anesthesiology Consultation ---
Date of Service April 11, 2023 Assessment & Plan Chart Review Chart Review: Acceptable Risk for Surgery and Patient NOT seen in Pre Admission Testing Consults Requested none ASA ASA2 Proposed Anesthesia Regional Laterality: Right Site: Popliteal and Adductor Canal Risk / Benefits Reviewed With: PT / POA / Parent / Guardian, Accepts Plan and Informed Consent Obtained History Surgery Operation Date: 04/11/23 15:45 Proposed Procedures p Open Reduction Internal Fixation Right Ankle Trimalleolar Fracture - Narendra Mina DO Height/Weight Weight: 73.9 kg Allergies Allergy/AdvReac Type Severity Reaction Status Date / Time No Known Allergies Allergy Unverified 04/11/23 12:44 Medications Home Medications Medication Instructions Recorded Confirmed Last Taken estradiol 2 mg (7.5 mcg/24 hour) 1 vag ring vaginal MONTHLY 04/11/23 04/11/23 04/01/23 vaginal ring (Estring) fluoxetine 10 mg capsule See Rx Instructions .Route .COMPLEX 04/11/23 04/11/23 04/10/23 fluoxetine 40 mg capsule See Rx Instructions .Route .COMPLEX 04/11/23 04/11/23 04/10/23 lamotrigine 200 mg tablet See Rx Instructions .Route .COMPLEX 04/11/23 04/11/23 04/10/23 lamotrigine 25 mg tablet See Rx Instructions .Route .COMPLEX 04/11/23 04/11/23 04/10/23 mirabegron 50 mg tablet,extended 50 mg PO QAM 04/11/23 04/11/23 04/10/23 release 24 hr (Myrbetriq) multivitamin-ferrous 1 tab PO QAM 04/11/23 04/11/23 04/10/23 fumarate-folic acid 18 mg-400 mcg tablet (Centrum Women) propranolol 20 mg tablet 20 mg PO QAM 04/11/23 04/11/23 04/10/23 trazodone 50 mg tablet 50 mg PO HS 04/11/23 04/11/23 04/10/23 Active Medications Generic Name Dose Route Start Last Admin Trade Name Freq PRN Reason Stop Dose Admin Morphine Sulfate 4 mg 04/11/23 12:33 04/11/23 14:01 Morphine Sulfate 4 Mg/Ml 1 Ml Carp\Vial IV 04/25/23 12:44 4 mg Q2H PRN Administration Pain NPO Date Last Intake of Fluids: 04/10/23 Time Last Intake of Fluids: 21:00 Date Last Intake of Solids: 04/10/23 Time Last Intake of Solids: 21:00 Past Medical History Medical History Anxiety Depression Past Family History Family History (Updated 04/11/23 @ 14:11 by ADE Musa) Mother Esophageal cancer Father COPD (chronic obstructive pulmonary disease) Past Surgical History Surgical History History of appendectomy History of bilateral oophorectomy Past Anesthesia History No Hx of Anesthesia Complications and No Family Hx of Anesthesia Complications Social History Smoking Status: Unknown if ever smoked Hx Substance Use: No substance use type: does not use Review of Systems ROS Unobtainable: All systems reviewed & are unremarkable except as noted in HPI & below Physical Exam Vital Signs Last Vital Signs Temp 36.6 C 04/11/23 16:12 Pulse 58 L 04/11/23 16:12 Resp 20 04/11/23 16:12 BP 115/64 04/11/23 16:12 Pulse Ox 100 04/11/23 16:12 O2 Del Method Room Air 04/11/23 16:12 O2 Flow Rate 2 04/11/23 11:40 Constitutional no acute distress ENMT Mouth: no TMJ abnormality Thyromental Distance: > or= 3.5 Finger Breadths Mallampati Class: II Neck normal visual inspection and trachea midline; neck extension not limited Respiratory normal respiratory effort Auscultation: lungs clear to auscultation bilaterally Cardiovascular Rate/Rhythm: regular rate and regular rhythm Heart Sounds: no murmur Musculoskeletal Spine: normal cervical ROM Extremities: full ROM of extremities Neurologic moves all extremities Psychiatric Orientation: alert and oriented x 3 Testing Laboratory Results 04/11/23 14:00 04/11/23 14:00 PT 11.0 Seconds (9.0-12.0) 04/11/23 14:00 INR 1.0 (0.9-1.1) 04/11/23 14:00 APTT 26.2 Seconds (21.0-31.0) 04/11/23 14:00 Electrocardiogram Date: 04/11/23 Findings: + NSR @ Left posterior fasicular block
[2023-04-11] MEDS ORDERED: ROPIVACAINE 0.5% 5 MG/ML 30 ML VIAL ONE (16:29)
--- NOTE | 2023-04-11 17:02 | Orthopedic Consultation ---
Date of Consultation April 11, 2023 Assessment & Plan (1) Fracture of ankle, trimalleolar, right, closed: Patient will undergo operative fixation right ankle. Scheduled for ORIF closed trimalleolar ankle fracture dislocation. Patient will be placed in a splint postop. Nonweightbearing right lower extremity. Initiate DVT prophylaxis tomorrow for a period of 4 weeks with aspirin 81 mg twice daily x4 weeks. Ice and elevate. May follow-up with orthopedic surgeon in [place] when returns home. Follow-up with Dr. Mina at [facility] orthopedic [place] should they decide to stay in the [facility]. Thank you for the opportunity to consult in the care of this patient. Narendra Mina DO [facility] (2) Dislocation of right ankle joint: History of Present Illness Reason for Consultation: Right trimalleolar ankle fracture dislocation. Requesting Physician: Dr. Santos Núñez. Hospitalist service. History of Present Illness This 57-year-old pleasant female was in her usual state of health when she slipped down a flight of stairs resulting in pain and deformity of her right ankle. She was unable to ambulate. She was transported to [facility] via EMS. She was seen by the emergency department physician where she was evaluated, x-rayed and noted to have a fracture dislocation of her right ankle. Patient underwent closed reduction by the ER physician and placement in a splint. Patient was then admitted to the hospitalist service for further orthopedic consultation and definitive surgical management today. Patient denies any loss of consciousness, head or neck trauma. She and her were visiting from [place]. Allergies Allergy/AdvReac Type Severity Reaction Status Date / Time No Known Allergies Allergy Unverified 04/11/23 12:44 Home Medications Medication Instructions Recorded Confirmed Type estradiol 2 mg (7.5 mcg/24 hour) 1 vag ring vaginal MONTHLY 04/11/23 04/11/23 History vaginal ring (Estring) fluoxetine 10 mg capsule See Rx Instructions .Route .COMPLEX 04/11/23 04/11/23 History fluoxetine 40 mg capsule See Rx Instructions .Route .COMPLEX 04/11/23 04/11/23 History lamotrigine 200 mg tablet See Rx Instructions .Route .COMPLEX 04/11/23 04/11/23 History lamotrigine 25 mg tablet See Rx Instructions .Route .COMPLEX 04/11/23 04/11/23 History mirabegron 50 mg tablet,extended 50 mg PO QAM 04/11/23 04/11/23 History release 24 hr (Myrbetriq) multivitamin-ferrous 1 tab PO QAM 04/11/23 04/11/23 History fumarate-folic acid 18 mg-400 mcg tablet (Centrum Women) propranolol 20 mg tablet 20 mg PO QAM 04/11/23 04/11/23 History trazodone 50 mg tablet 50 mg PO HS 04/11/23 04/11/23 History Patient History Medical History Anxiety Depression Surgical History History of appendectomy History of bilateral oophorectomy Family History (Updated 04/11/23 @ 14:11 by ADE Musa) Mother Esophageal cancer Father COPD (chronic obstructive pulmonary disease) Social History Smoking Status: Unknown if ever smoked Hx Substance Use: No Preferred Language: Malay Feels Safe at Home: Yes Physical Exam Constitutional: WD/WN, vitals as above Eyes: PERRL, conjunctivae normal, anicteric sclerae Glasses present. ENMT: external ear and nose normal, oropharynx normal Neck: trachea midline, no thyromegaly Respiratory: normal respiratory effort, lungs clear to auscultation Cardiovascular: RRR, no murmur, no edema Gastrointestinal (Abdomen): normal bowel sounds, soft, nontender, no hepatosplenomegaly Musculoskeletal: Right lower extremity posterior splint with stirrup in reasonable position postreduction. Toes are exposed, pink and warm. Capillary refill is brisk. Dorsalis pedis pulses palpable 2/4. Sensation intact right foot. Tenderness over the ankle with limited motion in the splint. Skin: no rashes, warm and dry Neurologic: PERRL, EOMI, accommodation nl, no face palsy, no dysarthria Psychiatric: A+Ox3, euthymic affect Lymphatic: no cervical or axillary lymphadenopathy Results & Data Vital Signs (Past 12 Hours) Vital Signs Temp Pulse Pulse Resp BP BP Pulse Ox 04/11/23 16:09 04/11/23 15:50 68 18 102/61 98 04/11/23 16:12 36.6 C 58 L 20 115/64 100 04/11/23 14:00 63 18 91/56 L 95 04/11/23 12:34 100 04/11/23 13:16 67 18 101/61 96 04/11/23 12:16 67 04/11/23 12:00 61 13 129/79 97 04/11/23 11:58 63 12 131/84 98 04/11/23 11:55 62 12 99 04/11/23 11:52 65 18 131/80 98 04/11/23 11:51 65 13 137/63 99 04/11/23 11:50 66 12 98 04/11/23 11:45 65 17 130/100 99 04/11/23 11:41 66 13 147/88 H 99 04/11/23 11:40 66 18 99 04/11/23 11:36 73 12 132/86 99 04/11/23 11:30 63 10 L 124/76 98 04/11/23 11:28 69 24 152/79 H 99 04/11/23 11:16 75 16 143/83 H 95 04/11/23 11:18 36.7 C 75 18 143/83 H 95 O2 Del Method O2 Flow Rate 04/11/23 16:09 Room Air 04/11/23 15:50 Room Air 04/11/23 16:12 Room Air 04/11/23 14:00 Room Air 04/11/23 12:34 Room Air 04/11/23 13:16 Room Air 04/11/23 12:16 04/11/23 12:00 Room Air 04/11/23 11:58 Room Air 04/11/23 11:55 Room Air 04/11/23 11:52 Room Air 04/11/23 11:51 Room Air 04/11/23 11:50 Room Air 04/11/23 11:45 Room Air 04/11/23 11:41 Room Air 04/11/23 11:40 Nasal Cannula 2 04/11/23 11:36 Nasal Cannula 2 04/11/23 11:30 04/11/23 11:28 04/11/23 11:16 Room Air 04/11/23 11:18 Room Air Diagnostic Findings Injury radiographs demonstrate fracture dislocation of the right ankle, close. Postreduction radiographs right ankle trimalleolar fracture 3 views demonstrate improved alignment postreduction in splint.
[2023-04-11] MEDS ORDERED: ePHEDrine sulfate 50 MG/5 ML SYR ONE (17:28)
[2023-04-11] MEDS ORDERED: BUPIVACAINE/EPINEPHRINE 0.25% 1:200,000 30 ML VIAL ONE (18:18)
--- NOTE | 2023-04-11 18:38 | Fluoroscopy Report ---
INTRAOPERATIVE RADIOGRAPHS CLINICAL HISTORY: Open reduction and internal fixation of right ankle fractures. Fluoro time: 19 seconds Ka,r: 0.40 mGy FINDINGS: 2 spot fluoroscopic views of the right ankle are correlated with ankle radiographs performe d earlier the same day 04/11/2023. 2 cortical lag screws have been placed transfixing a medial malleo lar fracture. There as been ultrasound plate fixation of a distal fibular fracture. Numerous cortical lag screw transfix the buttress plate. An additional cortical lag screw transfixes the distal tibia and fibula. Near-anatomic alignment is restored. Overlying soft tissue edema is noted. IMPRESSION: Intraoperative images from open reduction and internal fixation of distal tibial and fibu lar fractures as above. Electronically signed by: Jayce Galvan M.D. 04/11/2023 6:37 PM
--- NOTE | 2023-04-11 20:08 | Operative Report ---
Post Operative Report Pre & Post Diagnosis Operation Date: 04/11/23 15:45 Preoperative diagnosis: Right ankle closed displaced trimalleolar fracture dislocation, Right ankle syndesmotic disruption Post operative diagnosis: Right ankle closed displaced trimalleolar fracture dislocation, Right ankle syndesmotic disruption, Superior medial osteochondral defect of the talus 6 mm x 7 mm I identified the patient and participated in the time-out.: Yes Procedure Operation Date: 04/11/23 15:45 Procedure: Open reduction internal fixation right ankle trimalleolar fracture dislocation, Open reduction internal fixation syndesmotic disruption, Arthrotomy medial ankle joint, Chondroplasty superior medial talus, Osteochondral drilling superior medial talus. Surgeon Narendra Mina, Simulation Technician None Estimated Blood Loss 10 Findings Consistent with Post-Op Diagnosis Specimens None Anesthesia Type General Regional Complications none Disposition Accompanied Patient To Recovery: No Indications This is a pleasant 57-year-old female who fell down a flight of steps earlier this morning. She had immediate deformity, pain and inability to ambulate on her deformed right ankle. She was transported to [facility] where she was stabilized, evaluated with x-rays noting a closed trimalleolar right ankle fracture dislocation. Patient then underwent closed reduction and splinting. Patient was then admitted to the hospitalist service with orthopedic consultation performed. Patient was then scheduled for surgical fixation of her displaced closed trimalleolar fracture dislocation of her right ankle as indicated. Description of Procedure All potential risks, benefits, complications, alternatives, rehab, need for further surgery, potential for incomplete relief of symptoms, neurovascular injury, DVT, PE, , stiffness, weakness, loss of function, persistent pain, swelling, numbness, bone fracture, complications from hardware and wound complications were discussed with the patient and family. The patient and family decided to proceed with the procedure as indicated. The patient was given a popliteal block in the preop holding area and then taken to the operative suite and placed supine on the operating table. I did review the consent and identification of the proper operative site was performed. The patient was anesthetized and LMA was placed. A tourniquet was applied high on the operative right thigh over cast padding. The operative right lower extremity was then sterilely prepped and draped in usual fashion, elevated and exsanguinated with an Esmarch bandage. The tourniquet was inflated to 325 mmHg. A 15 blade scalpel was used to make an incision over the lateral malleolus. Incision was deepened to subcutaneous tissue. Meticulous hemostasis was achieved left cautery. Sensory cutaneous nerves identified freed retracted and protected. The fracture was then visualized and a 15 blade was used to elevate the periosteum at the fracture site extending proximally and distally for visualization. Next the fracture was then carefully irrigated and debrided. A small dental pick was used to remove clot from the fracture. The fracture was then reduced using bone reducing forceps. After fluoroscopic confirmation of near-anatomic reduction a 3.5 mm lag screw and a Synthes locking one third tubular plate was then contoured and then firmly affixed to the lateral aspect of the fibula using multiple bone screws. This stabilized and compressed the fracture in near anatomic alignment. Fluoroscopic images used to confirm red uction and fixation. Next attention was directed to the medial malleolus. A 15 blade scalpel was used to make a small curvilinear incision of the distal aspect the medial malleolus. The incision was then deepened to the subcutaneous tissue and hemostasis was achieved with electrocautery. The torn periosteum and fracture fragment was visualized. Periosteum was carefully debrided away from the fracture site. The fracture was then opened with a small dental pick and blood clot was removed. The intra-articular portion of the ankle joint was examined and a blood clot was removed with a forcep and then this was irrigated with sterile normal saline. After irrigation it was revealed that there was a unstable osteochondral flap on the superior medial talus. A separate arthrotomy was created with a 15 blade scalpel through the joint capsule to improve visualization and mobilization of the medial malleolar fragment was performed with house retractors. A small rongeur was used to resect the unstable and nonviable articular cartilage from the superior medial talus. The area of damage measures 6 mm x 7 mm in surface area along the superior medial shoulder of the talus. Unfortunately there was no possible way to repair the damaged, unstable articular cartilage. Next an osteochondral drilling was performed with a 0.32 inch K wire which was used to make multiple perforations to a depth of approximately 6 mm to encourage fiber cartilage adventism of the damaged region of the superior medial talus. Once the osteochondral drilling was completed, the site was copiously irrigated with sterile saline and the debris was removed with suction. Next the medial malleolar fracture fragment was then reduced under direct visualization held in place using a dental pick. Next two 1.25 mm guide pins were placed into the fracture fragment stabilizing into the rest of the distal tibia. This was performed under live fluoroscopic assistance. Next two 4.0 cannulated screws of appropriate length were applied over the guidepins and used to stabilize the fracture fragment in near-anatomic position. Next stress views were obtained using live fluoroscopic assistance noting dynamic widening of the medial ankle joint and medial gutter. Next a single 4.5 mm solid syndesmotic screw was passed through the fibula and into the tibia under live fluoroscopic assistance. This stabilized the ankle joint and closed the medial clear space to near-anatomic position with a symmetric ankle mortise. The small posterior malleolar fragment was recognized to be a small splinter fragment comprising far less than 20% of the lateral surface area of the distal tibia and decision was made to treat this indirectly with splinting. Next final radiographs were obtained using AP and lateral fluoroscopic views. Next all incisions were irrigated with copious amounts sterile normal saline until clear. Next the torn medial periosteum overlying the medial malleolus was closed with 2-0 Vicryl, the medial ankle joint arthrotomy was closed with 2-0 Vicryl. The dermis is closed using buried #3-0 Vicryl and the skin is closed using 3-0 Monocryl and Dermabond. 0.25% Marcaine with epinephrine was injected around the incision sites and the lateral soft tissue was then closed over the lateral plate with 2- 0 Vicryl, the dermis is closed using buried interrupted 3-0 Vicryl and skin is closed using 3-0 Monocryl and Dermabond. A sterile compressive dressing and bulky Munir Sullivan plaster splint was applied overwrapped with an Josias wrap. The tourniquet was released, normal hyperemic response return to the toes with brisk capillary refill and the patient was awakened and taken to recovery in stable condition. I attest to the content of the Intraoperative Record and any orders documented therein. Any exceptions are noted below.
[2023-04-11] MEDS ORDERED: MoRPHine SULFATE 2 MG/ML CARP IV PRN (20:19)
--- NOTE | 2023-04-11 20:54 | Anesthesiology Progress Note ---
Date of Service April 11, 2023 Anesthesia Post Procedure Vital Signs Vital Signs: Temp Pulse Pulse Pulse Pulse Resp BP 04/11/23 20:10 36.5 C 68 16 04/11/23 19:50 36.8 C 66 14 04/11/23 19:40 66 18 04/11/23 19:30 69 18 04/11/23 19:21 36.8 C 69 16 04/11/23 16:09 04/11/23 15:50 68 18 04/11/23 16:12 36.6 C 58 L 20 04/11/23 14:00 63 18 04/11/23 12:34 04/11/23 13:16 67 18 04/11/23 12:16 67 04/11/23 12:00 61 13 129/79 04/11/23 11:58 63 12 131/84 04/11/23 11:55 62 12 04/11/23 11:52 65 18 131/80 04/11/23 11:51 65 13 137/63 04/11/23 11:50 66 12 04/11/23 11:45 65 17 130/100 04/11/23 11:41 66 13 147/88 H 04/11/23 11:40 66 18 04/11/23 11:36 73 12 132/86 04/11/23 11:30 63 10 L 124/76 04/11/23 11:28 69 24 152/79 H 04/11/23 11:16 75 16 04/11/23 11:18 36.7 C 75 18 143/83 H BP Pulse Ox O2 Del Method O2 Flow Rate 04/11/23 20:10 117/72 97 Nasal Cannula 2 04/11/23 19:50 114/69 95 Nasal Cannula 2 04/11/23 19:40 113/76 96 Nasal Cannula 2 04/11/23 19:30 113/68 97 Oxymask 4 04/11/23 19:21 123/63 100 Oxymask 8 04/11/23 16:09 Room Air 04/11/23 15:50 102/61 98 Room Air 04/11/23 16:12 115/64 100 Room Air 04/11/23 14:00 91/56 L 95 Room Air 04/11/23 12:34 100 Room Air 04/11/23 13:16 101/61 96 Room Air 04/11/23 12:16 04/11/23 12:00 97 Room Air 04/11/23 11:58 98 Room Air 04/11/23 11:55 99 Room Air 04/11/23 11:52 98 Room Air 04/11/23 11:51 99 Room Air 04/11/23 11:50 98 Room Air 04/11/23 11:45 99 Room Air 04/11/23 11:41 99 Room Air 04/11/23 11:40 99 Nasal Cannula 2 04/11/23 11:36 99 Nasal Cannula 2 04/11/23 11:30 98 04/11/23 11:28 99 04/11/23 11:16 143/83 H 95 Room Air 04/11/23 11:18 95 Room Air Pain Intensity Right Ankle: Pain Intensity: 10 Transfer of Care Handoff Completed per policy Notes Mental Status: alert / awake / arousable Patient Amnestic to Procedure: Yes Nausea / Vomiting: adequately controlled Pain: adequately controlled Airway Patency, RR, SpO2: stable & adequate BP & HR: stable & adequate Hydration State: stable & adequate Anesthetic Complications: no major complications apparent
--- NOTE | 2023-04-11 21:21 | XRay Report ---
RIGHT ANKLE 3 VIEWS CLINICAL HISTORY: Postoperative examination. FINDINGS: 3 views of the right ankle are compared to studies performed earlier the same day 3. The Examination is performed through a splint, obscuring fine bony detail. 2 cortical lag screws h ave been placed transfixing a medial malleolar fracture. There has been buttress plate fixation along the lateral cortex of the distal fibula. Numerous cortical lag screw transfix the buttress plate, an d an additional cortical screw transfixes the distal tibia and the fibula. The orthopedic hardware ap pears intact. Near anatomic alignment is restored at the ankle joint. Soft tissue edema and simultane ous gas around the ankle are expected postsurgical findings. IMPRESSION: Postsurgical changes from open reduction and internal fixation of bimalleolar fractures a s above. Near-anatomic alignment is restored. Electronically signed by: Jayce Galvan M.D. 04/11/2023 9:19 PM
[2023-04-11] MEDS: ceFAZolin 2000MG 2,000 MG/15 ML SYR IV SCH (21:45)
[2023-04-11] MEDS: lamoTRIgine 100 MG TAB PO SCH (21:46)
[2023-04-11] MEDS: lamoTRIgine 25 MG TAB PO SCH (21:46)
[2023-04-11] MEDS: traZODone HCL 50 MG TAB PO SCH (22:47)
[2023-04-12] MEDS: ceFAZolin 2000MG 2,000 MG/15 ML SYR IV SCH ×2 (05:48→14:44)
[2023-04-12 06:31] LABS: Hematocrit (blood only) 33.5 % (37.0-47.0); Hemoglobin 10.9 g/dl (12.0-16.0); Mean Corpuscular Hemoglobin 30.7 pg (25.0-34.0); Mean Corpuscular Hgb Conc 32.5 g/dL (32.0-36.0); Mean Corpuscular Volume 94.4 fL (80.0-100.0); Mean Platelet Volume 11.7 fL (9.4-12.4); Platelet Count 154 K/uL (130-400); RDW Coefficient of Variation 12.4 % (11.5-14.5); RDW Standard Deviation 43.7 fL (36.4-46.3); Red Blood Count 3.55 M/uL (4.20-5.40); White Blood Count 10.15 K/ul (4.8-10.8)
[2023-04-12 06:58] LABS: BUN Creatinine Ratio 15.2 (10-20); Calcium 8.3 mg/dl (8.6-10.3); Creatinine Clr Calc Pharmacy 69.7 ml/min; Est GFR (African American) 81.2 ml/min; Est GFR (Non-African American) 70.1 ml/min
[2023-04-12] MEDS: SODIUM CHLORIDE 0.9% 500 ML IV SCH ×3 (08:29→21:33)
[2023-04-12] MEDS: lamoTRIgine 100 MG TAB PO SCH ×2 (08:38→20:03)
[2023-04-12] MEDS: VIBEGRON 75 MG TAB PO SCH (08:38)
[2023-04-12] MEDS: FLUoxetine HCL 10 MG CAP PO SCH (08:38)
[2023-04-12] MEDS: lamoTRIgine 25 MG TAB PO SCH ×2 (08:38→20:03)
[2023-04-12] MEDS: PROPRANOLOL HCL 20 MG TAB PO SCH (08:38)
[2023-04-12] MEDS: FLUoxetine HCL 20 MG CAP PO SCH (08:38)
--- NOTE | 2023-04-12 09:18 | Electrocardiogram Report ---
Test Reason : Blood Pressure : / mmHG Vent. Rate : 060 BPM Atrial Rate : 060 BPM P-R Int : 140 ms QRS Dur : 076 ms QT Int : 478 ms P-R-T Axes : 000 143 175 degrees QTc Int : 478 ms Consider arm lead reversal Normal sinus rhythm Left posterior fascicular block Nonspecific T wave abnormality Abnormal ECG No previous ECGs available Confirmed by Doug Wing ([id number]) on 04/12/2023 9:17:58 AM Referred By: REFERRED SELF Confirmed By:Doug Wing
--- NOTE | 2023-04-12 11:55 | Orthopedic Progress Note ---
Date of Service April 12, 2023 Assessment & Plan (1) Fracture of ankle, trimalleolar, right, closed: Plan: S/P ORIF closed trimalleolar ankle fracture dislocation, Syndesmotic ORIF, Arthrotomy, Chondroplasty and OCD drilling superomedial talus 6 X 7mm traumatic lesion. Nonweightbearing right lower extremity. Cont DVT prophylaxis for a period of 4 weeks with aspirin 81 mg twice daily x4 weeks. Ice and elevate daily for 3-4 weeks. Crutches and/or Rolling Knee walker. May follow-up with orthopedic surgeon of their choice in [place] when returns home. Follow-up with Dr. Mina at [facility] should they decide to stay in the [facility] in 2 weeks. Thank you for the opportunity to consult in the care of this patient. Narendra Mina DO [facility] (2) Dislocation of right ankle joint: Admission and Anticipated Discharge Date Admission Date: April 11, 2023 Subjective Patient resting comfortably in hospital bed with present. Pain currently well controlled right ankle to the point of 0 pain at present. Patient somewhat hypervigilant regarding concerns surrounding anticipated pain management and narcotic prescription. Nerve block slowly beginning to wear off at this point. Unable to move toes due to nerve block. Explained discharge plan in great detail. All questions answered, from patient's written list. Physical Exam Constitutional: WD/WN, vitals as above Eyes: PERRL, conjunctivae normal, anicteric sclerae ENMT: external ear and nose normal, oropharynx normal Neck: trachea midline, no thyromegaly Respiratory: normal respiratory effort, lungs clear to auscultation Cardiovascular: RRR, no murmur, no edema Gastrointestinal (Abdomen): normal bowel sounds, soft, nontender, no hepatosplenomegaly Musculoskeletal: Patient lying supine in her hospital bed. Awake and alert X 3. Right lower extremity splint is clean, dry and intact. Elevated on 2 pillows with ice pack present. Toes are pink and warm. Capillary refill is brisk less than 2 seconds. Limited sensation and minimal active motion of the toes due to continued nerve block effect. Skin: no rashes, warm and dry Neurologic: PERRL, EOMI, accommodation nl, no face palsy, no dysarthria Psychiatric: A+Ox3, euthymic affect Lymphatic: no cervical or axillary lymphadenopathy Results & Data Vital Signs (Past 12 Hours) Vital Signs Temp Pulse Resp BP BP Pulse Ox O2 Del Method 04/12/23 08:35 74 105/64 04/12/23 07:27 36.9 C 66 14 94/58 L 93/53 L 100 Nasal Cannula O2 Flow Rate 04/12/23 08:35 04/12/23 07:27 2 Diagnostic Findings X-rays reviewed. Rigid anatomic fixation. (1) Fracture of ankle, trimalleolar, right, closed Encounter type: initial encounter Qualified Code(s): S82.851A - Displaced trimalleolar fracture of right lower leg, initial encounter for closed fracture
[2023-04-12] MEDS ORDERED: oxyCODONE HCL IR 5 MG TAB (IMMEDIATE RELEASE) PO PRN (12:07)
[2023-04-12] MEDS: ACETAMINOPHEN 325 MG TAB PO PRN ×2 (12:43→20:02)
[2023-04-12] MEDS: ASPIRIN 81 MG ECTAB PO SCH ×2 (13:42→20:04)
--- NOTE | 2023-04-12 15:03 | Hospitalist Progress Note ---
Date of Service April 12, 2023 Assessment & Plan (1) Bimalleolar ankle fracture: Plan: Admit to [facility] Patient presenting from home after a mechanical fall down the stairs. In the ED, found to have right Trimalleolar fracture. S/p reduction in the ED, will need OR. Ortho consulted-appreciate input and recommendation Status post open reduction internal fixation right ankle trimalleolar fracture on 04/11/2023 Complains of pain in right ankle and also sacral area Will start oral oxycodone with occasional IV narcotic to control pain for now Discussed with Ortho in detail Likely discharge tomorrow in the evening as the patient will be going to [place] the next day Has got a walker and may need scratches to walk around She will need to have nonweightbearing on the right foot with an outpatient Ortho appointment in [place] as soon as possible We will start aspirin 81 mg twice daily for DVT prophylaxis We will check CBC and electrolytes (2) Anxiety: Plan: No acute symptoms (3) Depression: Plan: Chronic, stable Continue home meds DVT PROPHYLAXIS SCDs for now due to potential procedure Aspirin 81 mg twice daily for 4 weeks Admission and Anticipated Discharge Date Admission Date: April 11, 2023 Subjective 04/12/2023 The patient was seen and examined in medical floor She is a status post open reduction internal fixation right ankle trimalleolar fracture on 04/11/2023 The right foot remains numb from medications and anesthetics Denies any other symptoms except coccygeal pain secondary to fall Review of Systems Review of Systems: All systems reviewed and are unremarkable except as noted below Physical Exam Physical Exam: Lying in bed comfortably but is very anxious Constitutional: well developed, well nourished, + ill appearing and average body habitus Eyes: PERRL, conjunctivae normal, anicteric sclerae ENMT: external ear and nose normal, oropharynx normal Neck: trachea midline, no thyromegaly Respiratory: no respiratory distress Auscultation: lungs clear to ausculta tion bilaterally Cardiovascular: Rate/Rhythm: regular rate and regular rhythm; not tachycardic Heart Sounds: normal S1 and normal S2; no murmur Extremities: no edema (Right ankle using cast) Gastrointestinal (Abdomen): Inspection/Auscultation: normal bowel sounds; abdomen not distended Percussion/Palpation: abdomen soft; abdomen nontender Musculoskeletal: No acute arthritis except right ankle using cast following surgery Neurologic: Alert, awake and oriented x3 Lymphatic: no cervical or axillary lymphadenopathy Results & Data Results & Data Vital Signs (Past 12 Hours) Vital Signs Temp Pulse Resp BP BP Pulse Ox O2 Del Method 04/12/23 12:27 36.9 C 71 16 105/68 96 Room Air 04/12/23 08:35 74 105/64 04/12/23 07:27 36.9 C 66 14 94/58 L 93/53 L 100 Nasal Cannula O2 Flow Rate 04/12/23 12:27 04/12/23 08:35 04/12/23 07:27 2 Laboratory Results Short CBC 04/12/23 Range/Units 05:40 WBC 10.15 (4.8-10.8) K/ul Hgb 10.9 L (12.0-16.0) g/dl Hct 33.5 L (37.0-47.0) % Plt Count 154 (130-400) K/uL BMP 04/12/23 05:40 Sodium 137 Potassium 4.0 Chloride 104 Carbon Dioxide 29 BUN 14 Creatinine 0.92 Glucose 123 H Calcium 8.3 L Medications Administered Current Inpatient Medications Acetaminophen (Acetaminophen 325 Mg Tab) 650 mg PO Q4H PRN PRN Reason: pain/fever Stop: 05/11/23 20:18 Last Admin: 04/12/23 12:43 Dose: 650 mg Aspirin (Aspirin 81 Mg Ectab) 81 mg PO BID [facility] Stop: 05/12/23 12:14 Last Admin: 04/12/23 13:42 Dose: 81 mg Fluoxetine HCl (Fluoxetine Hcl 10 Mg Cap) 10 mg PO QAM [facility] Stop: 05/12/23 08:59 Last Admin: 04/12/23 08:38 Dose: 10 mg Fluoxetine HCl (Fluoxetine Hcl 20 Mg Cap) 80 mg PO QAM [facility] Stop: 05/12/23 08:59 Last Admin: 04/12/23 08:38 Dose: 80 mg Cefazolin Sodium (Ancef 2000mg) 2,000 mg in 15 mls @ 3.75 mls/min IV Q8H [facility] Stop: 04/12/23 21:59 Last Admin: 04/12/23 14:44 Dose: 3.75 mls/min Sodium Chloride (Nss) 500 mls @ 80 mls/hr IV .Q6H15M [facility] Stop: 04/13/23 02:59 Last Admin: 04/12/23 14:44 Dose: 80 mls/hr Lamotrigine (Lamotrigine 100 Mg Tab) 200 mg PO BID [facility] Stop: 05/11/23 20:59 Last Admin: 04/12/23 08:38 Dose: 200 mg Lamotrigine (Lamotrigine 25 Mg Tab) 25 mg PO BID [facility] Stop: 05/11/23 20:59 Last Admin: 04/12/23 08:38 Dose: 25 mg Morphine Sulfate (Morphine Sulfate 4 Mg/Ml 1 Ml Carp\Vial) 4 mg IV Q3H PRN PRN Reason: Pain (6,7,8,9,10) Stop: 04/25/23 20:18 Morphine Sulfate (Morphine Sulfate 2 Mg/Ml Carp) 2 mg IV Q3H PRN PRN Reason: Pain (1,2,3,4,5) & Pre PT Stop: 04/25/23 20:18 Ondansetron HCl (Ondansetron Inj 2 Mg/Ml 2 Ml Vial) 4 mg IV Q6H PRN PRN Reason: Nausea Stop: 05/11/23 20:18 Oxycodone HCl (Oxycodone Hcl Ir 5 Mg Tab (Immediate Release)) 5 mg PO Q4H PRN PRN Reason: Pain Stop: 04/26/23 12:06 Propranolol HCl (Propranolol Hcl 20 Mg Tab) 20 mg PO QAM [facility] Stop: 05/12/23 08:59 Last Admin: 04/12/23 08:38 Dose: 20 mg Trazodone HCl (Trazodone Hcl 50 Mg Tab) 50 mg PO HS [facility] Stop: 05/11/23 20:59 Last Admin: 04/11/23 22:47 Dose: 50 mg Vibegron (Vibegron 75 Mg Tab) 75 mg PO DAILY [facility] Stop: 05/12/23 08:59 Last Admin: 04/12/23 08:38 Dose: 75 mg
[2023-04-12] MEDS: HYDROmorphone INJ 0.5 MG/0.5 ML SYR IV PRN ×2 (17:16→21:38)
[2023-04-12] MEDS: traZODone HCL 50 MG TAB PO SCH (20:04)
[2023-04-13] MEDS: HYDROmorphone INJ 0.5 MG/0.5 ML SYR IV PRN ×3 (03:32→13:50)
[2023-04-13 06:57] LABS: Basophils # (auto) 0.05 K/uL (0.00-0.20); Basophils % (auto) 0.6 %; Eosinophils # (auto) 0.17 K/uL (0.00-0.50); Hematocrit (blood only) 31.1 % (37.0-47.0); Hemoglobin 10.1 g/dl (12.0-16.0); Immature Granulocytes # (auto) 0.04 K/uL (0.01-0.20); Immature Granulocytes % (auto) 0.5 %; Lymphocytes # (auto) 1.35 K/uL (1.20-3.40); Lymphocytes % (auto) 15.9 %; Mean Corpuscular Hemoglobin 30.4 pg (25.0-34.0); Mean Corpuscular Hgb Conc 32.5 g/dL (32.0-36.0); Mean Corpuscular Volume 93.7 fL (80.0-100.0); Monocytes % (auto) 11.8 %; Neutrophils # (auto) 5.88 K/uL (1.40-6.50); Neutrophils % (auto) 69.2 %; Platelet Count 136 K/uL (130-400); RDW Coefficient of Variation 12.5 % (11.5-14.5); RDW Standard Deviation 43.1 fL (36.4-46.3); Red Blood Count 3.32 M/uL (4.20-5.40); White Blood Count 8.49 K/ul (4.8-10.8)
[2023-04-13 07:20] LABS: BUN Creatinine Ratio 13.3 (10-20); Calcium 8.4 mg/dl (8.6-10.3); Creatinine Clr Calc Pharmacy 85.5 ml/min; Est GFR (Non-African American) 89.7 ml/min; Potassium 3.9 mmol/L (3.5-5.1)
[2023-04-13] MEDS: FLUoxetine HCL 20 MG CAP PO SCH (09:07)
[2023-04-13] MEDS: VIBEGRON 75 MG TAB PO SCH (09:07)
[2023-04-13] MEDS: PROPRANOLOL HCL 20 MG TAB PO SCH (09:07)
[2023-04-13] MEDS: lamoTRIgine 100 MG TAB PO SCH (09:07)
[2023-04-13] MEDS: FLUoxetine HCL 10 MG CAP PO SCH (09:07)
[2023-04-13] MEDS: ASPIRIN 81 MG ECTAB PO SCH (09:07)
[2023-04-13] MEDS: lamoTRIgine 25 MG TAB PO SCH (09:07)
--- NOTE | 2023-04-13 11:44 | Hospitalist Progress Note ---
Date of Service April 13, 2023 Assessment & Plan (1) Fracture of ankle, trimalleolar, right, closed: Plan: Admit to [facility] Patient presenting from home after a mechanical fall down the stairs. In the ED, found to have right Trimalleolar fracture. S/p reduction in the ED, will need OR. Ortho consulted-appreciate input and recommendation Status post open reduction internal fixation right ankle trimalleolar fracture on 04/11/2023 as below Complains of pain in right ankle and also sacral area Will start oral oxycodone with occasional IV narcotic to control pain for now Discussed with Ortho in detail Likely discharge tomorrow in the evening as the patient will be going to [place] the next day Has got a walker and may need crutches to walk around She will need to have nonweightbearing on the right foot with an outpatient Ortho appointment in [place] as soon as possible We will start aspirin 81 mg twice daily for DVT prophylaxis We will check CBC and electrolytes-remained unremarkable 04/13/2023 S/P ORIF closed trimalleolar ankle fracture dislocation, Syndesmotic ORIF, Arthrotomy, Chondroplasty and OCD drilling superomedial talus 6 X 7mm traumatic lesion. Appreciate Ortho input and recommendation Her pain is reasonably controlled today 04/13/2023 She has been moving the toes and denies any other significant symptoms She will get PT and OT evaluation today She will be discharged this afternoon Strongly advised to have follow-up appointment with her orthopedic surgeon in [place] within 2 weeks and make an appointment with PCP within 1 week She will follow the instructions regarding activities as per orthopedic surgeon (2) Bimalleolar ankle fracture: Plan: Initial x-ray report was bimalleolar (3) Anxiety: Plan: No acute symptoms (4) Depression: Plan: Chronic, stable Continue home meds DVT PROPHYLAXIS SCDs for now due to potential procedure Aspirin 81 mg twice daily for 4 weeks Admission and Anticipated Discharge Date Admission Date: April 11, 2023 Subjective 04/12/2023 The patient was seen and examined in medical floor She is a status post open reduction internal fixation right ankle trimalleolar fracture on 04/11/2023 The right foot remains numb from medications and anesthetics Denies any other symptoms except coccygeal pain secondary to fall 04/13/2023 The patient was seen and examined in medical floor in presence of the Her pain in the right ankle is better She has been able to move the toes Denies any numbness involving the toes or right foot She denies any other significant symptoms Review of Systems Review of Systems: All systems reviewed and are unremarkable except as noted below Physical Exam Physical Exam: Lying in bed comfortably but is very anxious Constitutional: well developed, well nourished, + ill appearing and average body habitus Eyes: PERRL, conjunctivae normal, anicteric sclerae ENMT: external ear and nose normal, oropharynx normal Neck: trachea midline, no thyromegaly Respiratory: no respiratory distress Auscultation: lungs clear to auscultation bilaterally Cardiovascular: Rate/Rhythm: regular rate and regular rhythm; not tachycardic Heart Sounds: normal S1 and normal S2; no murmur Extremities: no edema (Right ankle using cast) Gastrointestinal (Abdomen): Inspection/Auscultation: normal bowel sounds; abdomen not distended Percussion/Palpation: abdomen soft; abdomen nontender Musculoskeletal: No acute arthritis except status post right ankle surgery for trimalleolar fracture Neurologic: normal touch/pain/proprioception and moves all extremities (Except right lower leg and foot) Lymphatic: no cervical or axillary lymphadenopathy Results & Data Results & Data Vital Signs (Past 12 Hours) Vital Signs Temp Pulse Resp BP Pulse Ox O2 Del Method 04/13/23 09:06 81 107/65 04/13/23 07:20 36.3 C L 69 16 116/73 94 Room Air Laboratory Results Short CBC 04/13/23 Range/Units 06:21 WBC 8.49 (4.8-10.8) K/ul Hgb 10.1 L (12.0-16.0) g/dl Hct 31.1 L (37.0-47.0) % Plt Count 136 (130-400) K/uL BMP 04/13/23 06:21 Sodium 138 Potassium 3.9 Chloride 105 Carbon Dioxide 29 BUN 10 Creatinine 0.75 Glucose 100 H Calcium 8.4 L Medications Administered Current Inpatient Medications Acetaminophen (Acetaminophen 325 Mg Tab) 650 mg PO Q4H PRN PRN Reason: pain/fever Stop: 05/11/23 20:18 Last Admin: 04/12/23 20:02 Dose: 650 mg Aspirin (Aspirin 81 Mg Ectab) 81 mg PO BID [facility] Stop: 05/12/23 12:14 Last Admin: 04/13/23 09:07 Dose: 81 mg Fluoxetine HCl (Fluoxetine Hcl 10 Mg Cap) 10 mg PO QAM [facility] Stop: 05/12/23 08:59 Last Admin: 04/13/23 09:07 Dose: 10 mg Fluoxetine HCl (Fluoxetine Hcl 20 Mg Cap) 80 mg PO QAM [facility] Stop: 05/12/23 08:59 Last Admin: 04/13/23 09:07 Dose: 80 mg Hydromorphone HCl (Hydromorphone Inj 0.5 Mg/0.5 Ml Syr) 0.5 mg IV Q3H PRN PRN Reason: Pain Stop: 04/26/23 17:04 Last Admin: 04/13/23 07:46 Dose: 0.5 mg Lamotrigine (Lamotrigine 100 Mg Tab) 200 mg PO BID [facility] Stop: 05/11/23 20:59 Last Admin: 04/13/23 09:07 Dose: 200 mg Lamotrigine (Lamotrigine 25 Mg Tab) 25 mg PO BID [facility] Stop: 05/11/23 20:59 Last Admin: 04/13/23 09:07 Dose: 25 mg Ondansetron HCl (Ondansetron Inj 2 Mg/Ml 2 Ml Vial) 4 mg IV Q6H PRN PRN Reason: Nausea Stop: 05/11/23 20:18 Oxycodone HCl (Oxycodone Hcl Ir 5 Mg Tab (Immediate Release)) 5 mg PO Q4H PRN PRN Reason: Pain Stop: 04/26/23 12:06 Last Admin: 04/12/23 20:01 Dose: 5 mg Propranolol HCl (Propranolol Hcl 20 Mg Tab) 20 mg PO QAM [facility] Stop: 05/12/23 08:59 Last Admin: 04/13/23 09:07 Dose: 20 mg Trazodone HCl (Trazodone Hcl 50 Mg Tab) 50 mg PO HS [facility] Stop: 05/11/23 20:59 Last Admin: 04/12/23 20:04 Dose: 50 mg Vibegron (Vibegron 75 Mg Tab) 75 mg PO DAILY [facility] Stop: 05/12/23 08:59 Last Admin: 04/13/23 09:07 Dose: 75 mg (1) Fracture of ankle, trimalleolar, right, closed Encounter type: initial encounter Qualified Code(s): S82.851A - Displaced trimalleolar fracture of right lower leg, initial encounter for closed fracture
--- NOTE | 2023-04-13 12:12 | Orthopedic Progress Note ---
Date of Service April 13, 2023 Assessment & Plan (1) Fracture of ankle, trimalleolar, right, closed: Plan: Postoperative day #2 S/P ORIF closed trimalleolar ankle fracture dislocation, Syndesmotic ORIF, Arthrotomy, Chondroplasty and OCD drilling superomedial talus 6 X 7mm traumatic lesion. Nonweightbearing right lower extremity. Cont DVT prophylaxis for a period of 4 weeks with aspirin 81 mg twice daily x4 weeks. Ice and elevate daily for 3-4 weeks. Crutches and/or Rolling Knee walker. May follow-up with orthopedic surgeon of her choice in [place] when returns home. Follow-up with Dr. Mina at [facility] should they decide to stay in the [facility] in 2 weeks. He is asked to sign off at this time. Thank you for the opportunity to consult in the care of this patient. Narendra Mina DO [facility] (2) Dislocation of right ankle joint: Admission and Anticipated Discharge Date Admission Date: April 11, 2023 Subjective Patient seen on rounds. Patient resting comfortably in bed. Right ankle pain well controlled. Icing and elevating it is helping. And she is able to feel and move toes without difficulty. Physical Exam Constitutional: WD/WN, vitals as above Eyes: PERRL, conjunctivae normal, anicteric sclerae ENMT: external ear and nose normal, oropharynx normal Neck: trachea midline, no thyromegaly Respiratory: normal respiratory effort, lungs clear to auscultation Cardiovascular: RRR, no murmur, no edema Gastrointestinal (Abdomen): normal bowel sounds, soft, nontender, no hepatosplenomegaly Musculoskeletal: Right ankle splint clean, dry and intact. No evidence of strikethrough or bleeding. Toes are pink and warm. Capillary refill is brisk with normal sensation. Right lower extremity is elevated on 2 pillows with ice pack. Skin: no rashes, warm and dry Neurologic: PERRL, EOMI, accommodation nl, no face palsy, no dysarthria Psychiatric: A+Ox3, euthymic affect Lymphatic: no cervical or axillary lymphadenopathy Results & Data Vital Signs (Past 12 Hours) Vital Signs Temp Pulse Resp BP Pulse Ox O2 Del Method 04/13/23 09:06 81 107/65 04/13/23 07:20 36.3 C L 69 16 116/73 94 Room Air (1) Fracture of ankle, trimalleolar, right, closed Encounter type: initial encounter Qualified Code(s): S82.851A - Displaced trimalleolar fracture of right lower leg, initial encounter for closed fracture
--- NOTE | 2023-04-14 09:05 | Discharge Summary ---
Date of Service April 14, 2023 Admission HPI Per Admitting Provider 57-year-old female with PMH anxiety, depression, and other problems listed below who presents to the ED for evaluation after a fall and subsequent right ankle pain. History obtained from the patient. Patient reports she was walking down steps in her socks when she slipped and fell down about 8 steps. Her right ankle was significantly swollen and deformed. Patient denies striking her head or loss of consciousness. No associated lightheadedness, dizziness, chest pain, shortness of breath. Patient reports she otherwise has been feeling well recently. No other recent illnesses, fevers, chills. She denies abdominal pain, nausea, vomiting, diarrhea. No urinary symptoms. In the ED, patient is found to have a right bimalleolar fracture with dislocation. She underwent reduction in the ED. Admission Exam Per Admitting Provider Constitutional: WD/WN, vitals as above no acute distress Eyes: PERRL, conjunctivae normal, anicteric sclerae ENMT: external ear and nose normal, oropharynx normal Respiratory: normal respiratory effort, lungs clear to auscultation Cardiovascular: Rate/Rhythm: regular rate and regular rhythm Vessels: normal peripheral pulses Extremities: no edema Gastrointestinal (Abdomen): normal bowel sounds, soft, nontender, no hepatosplenomegaly Musculoskeletal: RLE splinted, CSM checks intact Skin: no rashes, warm and dry Neurologic: PERRL, EOMI, accommodation nl, no face palsy, no dysarthria Psychiatric: A+Ox3, euthymic affect Principal Diagnosis Trimalleolar fracture of right ankle status post ORIF Discharge Exam Lying in bed comfortably but is very anxious Constitutional well developed, well nourished, + ill appearing and average body habitus Eyes PERRL, conjunctivae normal, anicteric sclerae ENMT external ear and nose normal, oropharynx normal Neck trachea midline, no thyromegaly Respiratory no respiratory distress Auscultation: lungs clear to auscultation bilaterally Cardiovascular Rate/Rhythm: regular rate and regular rhythm; not tachycardic Heart Sounds: normal S1 and normal S2; no murmur Extremities: no edema (Right ankle using cast) Gastrointestinal (Abdomen) Inspection/Auscultation: normal bowel sounds; abdomen not distended Percussion/Palpation: abdomen soft; abdomen nontender Neurologic normal touch/pain/proprioception and moves all extremities (Except right lower leg and foot) Lymphatic no cervical or axillary lymphadenopathy Discharge Data Allergies Allergy/AdvReac Type Severity Reaction Status Date / Time No Known Allergies Allergy Unverified 04/11/23 12:44 Consultations 04/11/23 12:36 ED Decision to Admit Stat 04/11/23 13:02 Consult Orthopedic Surgery Stat 04/13/23 11:43 Burn CD for patient Stat Procedures Performed Operation Date: 04/11/23 15:45 Actual Procedures p Open Reduction Internal Fixation Right Ankle Trimalleolar Fracture; Syndesmosis; Arthrotomy; Open Chondroplasty Talus(Right) - Narendra Mina, Ordered Studies 04/11/23 FL ankle RT 2V Routine 04/11/23 16:27 US - OR guided needle placemen Routine Hospital Course (1) Fracture of ankle, trimalleolar, right, closed: Admit to [facility] Patient presenting from home after a mechanical fall down the stairs. In the ED, found to have right Trimalleolar fracture. S/p reduction in the ED, will need OR. Ortho consulted-appreciate input and recommendation Status post open reduction internal fixation right ankle trimalleolar fracture o n 04/11/2023 as below Complains of pain in right ankle and also sacral area Will start oral oxycodone with occasional IV narcotic to control pain for now Discussed with Ortho in detail Likely discharge tomorrow in the evening as the patient will be going to [place] the next day Has got a walker and may need crutches to walk around She will need to have nonweightbearing on the right foot with an outpatient Ortho appointment in [place] as soon as possible We will start aspirin 81 mg twice daily for DVT prophylaxis We will check CBC and electrolytes-remained unremarkable 04/13/2023 S/P ORIF closed trimalleolar ankle fracture dislocation, Syndesmotic ORIF, Arthrotomy, Chondroplasty and OCD drilling superomedial talus 6 X 7mm traumatic lesion. Appreciate Ortho input and recommendation Her pain is reasonably controlled today 04/13/2023 She has been moving the toes and denies any other significant symptoms She will get PT and OT evaluation today She will be discharged this afternoon Strongly advised to have follow-up appointment with her orthopedic surgeon in [place] within 2 weeks and make an appointment with PCP within 1 week She will follow the instructions regarding activities as per orthopedic surgeon (2) Bimalleolar ankle fracture: Initial x-ray report was bimalleolar (3) Anxiety: No acute symptoms (4) Depression: Chronic, stable Continue home meds DVT PROPHYLAXIS SCDs for now due to potential procedure Aspirin 81 mg twice daily for 4 weeks Total Time Total Time Spent Total Time Spent (In Minutes): 35 minutes Discharge Plan Discharge Items Patient Disposition: Home - Self-Care Reason For Visit: RIGHT ANKLE FRACTURE Discharge Diagnosis: Trimalleolar fracture of right ankle status post ORIF Condition on Discharge: Fair Activity: Per Instructions section Activity Comment: Nonweightbearing right lower extremity. Non-emergency contact: Primary Care Provider Call non-emergency contact if: you have any medication questions and your symptoms worsen Follow-up/Referrals: Shelia Singh MD [Primary Care Provider] - (Please make an appointment with your primary care physician within 7 days and Ortho appointment within 2 weeks) Diet: Regular Addtl Attending Provider Instructions: Please take precautions to avoid fall Follow the recommendation as per orthopedic surgeon as below: Nonweightbearing right lower extremity. Cont DVT prophylaxis for a period of 4 weeks with aspirin 81 mg twice daily x4 weeks. Ice and elevate daily for 3-4 weeks. Crutches and/or Rolling Knee walker. May follow-up with orthopedic surgeon of her choice in [place] when returns home. Follow-up with Dr. Mina at [facility] [place] should they decide to stay in the [facility] in 2 weeks. Try to use less of narcotics pain medication You can try ibuprofen 600 mg up to 4 times daily with food as needed for pain control Tylenol 1 g every 8 hourly as needed for pain control on top of ibuprofen in between. Pending Studies at Discharge: No Stand-Alone Forms: My [facility] [employer], Smoking Cessation Medications and DC Order Prescriptions: New aspirin 81 mg Tablet,Delayed Release (Dr/Ec) 81 mg PO BID Qty: 52 0RF oxycodone 5 mg Tablet 5 mg PO Q4H PRN (Reason: pain) Qty: 30 0RF Continued fluoxetine 40 mg capsule See Rx Instructions .ROUTE .COMPLEX Rx Instructions: Take 2 of the 40mg capsules w/ one of the 10mg capsules to equal 90mg by mouth every morning. trazodone 50 mg tablet 50 mg PO HS fluoxetine 10 mg capsule See Rx Instructions .ROUTE .COMPLEX Rx Instructions: Take 10mg capsule w/ 2 of the 40mg capsules to equal 90mg by mouth every morning. Estring 2 mg (7.5 mcg /24 hour) ring 1 vag ring VAGINAL MONTHLY propranolol 20 mg tablet 20 mg PO QAM [facility] 18-400 mg-mcg Tablet 1 tab PO QAM Myrbetriq 50 mg tablet extended release 24 hr 50 mg PO QAM lamotrigine 200 mg tablet See Rx Instructions .ROUTE .COMPLEX Rx Instructions: Take 200mg tablet w/ 25mg tablet by mouth to equal 225mg twice daily lamotrigine 25 mg tablet See Rx Instructions .ROUTE .COMPLEX Rx Instructions: Take 25mg tablet w/ 200mg tablet by mouth to equal 225mg twice daily Discharge Orders: Discharge Order (Routine); Ordered 04/13/23 Ordered By: Baldemar Shin Admission Data Admit Date/Time: 04/11/23 16:10 Attending Provider: Baldemar Shin Admit Provider: Nelia Jordan Primary Care Provider: Shelia Signh Other Providers: Nelia Jordan ; Narendra Mina Other Interventions: Discharge Summary Assessment (RN) Last Done: 04/13/23 13:48
== END 2023-04-13 14:33 | disposition home or self-care (01) | DRG 494 ==
LOC: ED 10:59 → OR 16:09 → SUATTDRO 16:10 → 3E 16:10